=== PATIENT | male | born 1955 | race Caucasian/White ===

== ENCOUNTER 2021-11-04 07:03 | Outpatient (CLI) | payer OTHER ==
[2021-11-04] MEDS ORDERED: DIATR MEGLU/DIATRIZ SOD 30 ML SOLUTION PO ONE (07:22)
== END 2021-11-04 20:31 | disposition home or self-care (01) ==
LOC: SCT 07:03
PROVIDERS: ATTEND Urology Pediatric Urology
DX: C61 Malignant neoplasm of prostate (principal); N40.0 Benign prostatic hyperplasia without lower urinary tract symptoms; N32.89 Other specified disorders of bladder; M47.819 Spondylosis without myelopathy or radiculopathy, site unspecified
CPT/HCPCS: 74176; 76376; 78306; A9503; Q9964

== ENCOUNTER 2022-02-17 09:19 | Outpatient (CLI) | payer OTHER ==
[2022-02-17] MEDS ORDERED: CYSTOGRAFIN 300 ML INFUS..BTL UR ONE (09:53)
== END 2022-02-17 20:58 | disposition home or self-care (01) ==
LOC: SRD 09:19
PROVIDERS: ATTEND Urology Pediatric Urology
DX: R97.20 Elevated prostate specific antigen [PSA] (principal)
CPT/HCPCS: 74430; 51600; Q9958